=== PATIENT | male | born 1975 | race Hispanic/Latino ===

== ENCOUNTER 2020-09-04 22:02 | Emergency (ER) | payer OTHER, SELFPAY ==
[2020-09-05 02:02] LABS: Basophils # (Auto) 0.1 K/mm3 (0.0-0.1); Eosinophils # (Auto) 0.3 K/mm3 (0.0-0.4); Eosinophils % (Auto) 5.1 % (0.0-4.3); Hematocrit 41.3 % (35.5-45.6); Hemoglobin 14.3 gm/dl (11.8-15.2); Lymphocytes # (Auto) 2.2 K/mm3 (1.2-5.4); Lymphocytes % (Auto) 33.7 % (13.4-35.0); Mean Corpuscular HGB Conc 35 % (32-34); Mean Corpuscular Volume 90 fl (84-94); Monocytes # (Auto) 0.6 K/mm3 (0.0-0.8); Monocytes % (Auto) 9.1 % (0.0-7.3); Platelet Count 270 K/mm3 (140-440); Red Blood Count 4.59 M/mm3 (3.65-5.03); Red Cell Distribution Width 13.3 % (13.2-15.2)
[2020-09-05 02:13] LABS: Blood Urea Nitrogen 9 mg/dL (9-20); Calcium 8.7 mg/dL (8.4-10.2); Hemolysis Index 1
[2020-09-05 02:15] LABS: Alanine Aminotransferase 34 units/L (7-56); Albumin 3.9 g/dL (3.9-5)
[2020-09-05 02:17] LABS: BUN/Creatinine Ratio 13
[2020-09-05 02:18] LABS: Bilirubin,Direct < 0.2 mg/dL (0-0.2)
[2020-09-05] MEDS ORDERED: ZIPRASIDONE MESYLATE 20 MG VIAL IM ONE ×3 (02:18→21:50)
--- NOTE | 2020-09-05 02:21 | Emergency Department Report ---
ED Psych HPI - General Chief Complaint: Psych Stated Complaint: HALLUCINATION,PARANOID,TALKING TO SELF Time Seen by Provider: 09/05/20 01:28 Source: patient Mode of arrival: Ambulatory - History of Present Illness Initial Comments: Patient is 44 years old male with history of schizophrenia. Patient presented to the ER stating that he is feeling suicidal and homicidal. Patient stated that he is hearing voices asking him to kill himself. Patient stated that he does not have a specific plan. Patient denied visual hallucination. Patient admitted that he has been using methamphetamine in the last few days. Patient is very agitated and anxious. Patient given Geodon 20 mg IM for sedation. MD Complaint: suicidal ideation, feels depressed - Related Data Home Medications Medication Instructions Recorded Confirmed Last Taken Cogentin 20 mg PO DAILY 09/05/20 09/10/20 Unknown Haldol 5 mg BID 09/05/20 09/10/20 Unknown Levothyroxine [Synthroid] 25 mcg PO QAM 09/05/20 09/05/20 Unknown Previous Rx's Medication Instructions Recorded Last Taken Type Divalproex Dr [DepaKOTE DR] 250 mg PO TID #90 tablet 09/12/20 Unknown Rx OLANZapine [Zyprexa] 15 mg PO DAILY #30 tablet 09/12/20 Unknown Rx Venlafaxine [Effexor 37.5mg tab] 37.5 mg PO QDAY #30 tab 09/12/20 Unknown Rx Allergies Allergy/AdvReac Type Severity Reaction Status Date / Time No Known Allergies Allergy Unverified 09/05/20 01:46 ED Review of Systems ROS: Stated complaint: HALLUCINATION,PARANOID,TALKING TO SELF Other details as noted in HPI Comment: All other systems reviewed and negative Constitutional: denies: chills Respiratory: denies: cough, shortness of breath, SOB with exertion Cardiovascular: denies: chest pain, palpitations Gastrointestinal: denies: abdominal pain, nausea Musculoskeletal: denies: back pain Neurological: denies: headache, weakness Psychiatric: anxiety, auditory hallucinations, homicidal thoughts, suicidal thoughts. denies: depression, visual hallucinations ED Past Medical Hx - Past Medical History Previous Medical History?: No - Surgical History Past Surgical History?: No - Social History Smoking Status: Never Smoker Substance Use Type: None - Medications Home Medications: Home Medications Medication Instructions Recorded Confirmed Last Taken Type Cogentin 20 mg PO DAILY 09/05/20 09/10/20 Unknown History Haldol 5 mg BID 09/05/20 09/10/20 Unknown History Levothyroxine [Synthroid] 25 mcg PO QAM 09/05/20 09/05/[address] [DepaKOTE DR] 250 mg PO TID #90 tablet 09/12/20 Unknown Rx OLANZapine [Zyprexa] 15 mg PO DAILY #30 tablet 09/12/20 Unknown Rx Venlafaxine [Effexor 37.5mg tab] 37.5 mg PO QDAY #30 tab 09/12/20 Unknown Rx ED Physical Exam - General Limitations: No Limitations General appearance: alert, anxious, other (AGITATED) - Head Head exam: Present: atraumatic, normocephalic, normal inspection - Eye Eye exam: Present: normal appearance, PERRL - ENT ENT exam: Present: normal exam, normal orophraynx, mucous membranes moist - Neck Neck exam: Present: normal inspection, full ROM. Absent: tenderness, meningismus - Respiratory Respiratory exam: Present: normal lung sounds bilaterally - Cardiovascular Cardiovascular Exam: Present: regular rate, normal rhythm, normal heart sounds - GI/Abdominal GI/Abdominal exam: Present: soft, normal bowel sounds. Absent: distended, tenderness, guarding, rebound, rigid, organomegaly, mass, bruit, pulsatile mass, hernia - Extremities Exam Extremities exam: Present: normal inspection, full ROM, normal capillary refill. Absent: pedal edema, calf tenderness - Back Exam Back exam: Present: normal inspection. Absent: CVA tenderness (R), CVA tenderness (L) - Neurological Exam Neurological exam: Present: alert, oriented X3, CN II-XII intact - Psychiatric Psychiatric exam: Present: agitated, anxious, homicidal ideation, suicidal ideation - Skin Skin exam: Present: warm, intact, normal color ED Course Vital Signs 09/04/20 09/05/20 09/05/20 23:00 01:30 08:35 Temperature 98.1 F 98.2 F 97.5 F L Pulse Rate 82 94 H Respiratory 18 18 18 Rate Blood Pressure 138/78 Blood Pressure 135/74 139/94 [Right] O2 Sat by Pulse 98 100 Oximetry 09/05/20 09/05/20 09/06/20 16:10 19:37 02:56 Temperature 97.9 F 97.5 F L Pulse Rate 65 78 84 Respiratory 20 16 18 Rate Blood Pressure Blood Pressure 135/79 136/80 134/83 [Right] O2 Sat by Pulse 97 97 100 Oximetry 09/06/20 09/06/20 09/06/20 08:00 20:00 20:30 Temperature 97.6 F 98.8 F Pulse Rate 86 69 Respiratory 18 18 18 Rate Blood Pressure Blood Pressure 131/75 141/84 [Right] O2 Sat by Pulse 97 96 96 Oximetry 09/07/20 09/07/20 09/07/20 02:30 08:36 20:09 Temperature 98.4 F 98.7 F 98.4 F Pulse Rate 70 68 68 Respiratory 18 18 18 Rate Blood Pressure Blood Pressure 138/68 120/82 131/79 [Right] O2 Sat by Pulse 100 100 96 Oximetry 09/07/20 09/08/20 09/08/20 22:03 00:27 10:59 Temperature 98.1 F 98.3 F Pulse Rate 61 60 Respiratory 18 18 18 Rate Blood Pressure Blood Pressure 130/70 130/79 [Right] O2 Sat by Pulse 96 100 Oximetry 09/08/20 09/09/20 09/09/20 19:58 02:00 03:06 Temperature 98.3 F 98.4 F Pulse Rate 88 81 Respiratory 16 16 18 Rate Blood Pressure Blood Pressure 140/83 119/77 [Right] O2 Sat by Pulse 97 98 98 Oximetry 09/09/20 09/09/20 09/10/20 07:33 20:00 02:00 Temperature 98.6 F 98.8 F 97.4 F L Pulse Rate 80 78 76 Respiratory 16 20 16 Rate Blood Pressure Blood Pressure 147/80 108/70 104/72 [Right] O2 Sat by Pulse 97 98 100 Oximetry 09/10/20 09/10/20 09/10/20 08:00 19:54 23:20 Temperature 98.4 F 97.8 F Pulse Rate 84 75 Respiratory 18 18 18 Rate Blood Pressure Blood Pressure 128/80 118/75 [Right] O2 Sat by Pulse 100 97 98 Oximetry 09/11/20 09/11/20 09/11/20 02:06 07:53 20:48 Temperature 97.7 F 98.3 F 97.6 F Pulse Rate 74 81 72 Respiratory 16 20 18 Rate Blood Pressure Blood Pressure 107/80 140/98 107/76 [Right] O2 Sat by Pulse 98 100 96 Oximetry 09/11/20 09/12/20 09/12/20 22:15 02:14 08:43 Temperature 97.6 F 98.6 F Pulse Rate 70 67 Respiratory 16 18 20 Rate Blood Pressure Blood Pressure 101/69 138/93 [Right] O2 Sat by Pulse 98 98 100 Oximetry ED Medical Decision Making - Lab Data Result diagrams: 09/05/20 01:40 09/05/20 01:40 Critical care attestation.: If time is entered above; I have spent that time in minutes in the direct care of this critically ill patient, excluding procedure time. ED Disposition Clinical Impression: MDD (major depressive disorder), Polysubstance abuse Disposition: DC-01 TO HOME OR SELFCARE Is pt being admited?: No Condition: Stable Instructions: Substance Use Disorder, Major Depressive Disorder, Adult, Finding Treatment for Addiction Additional Instructions: Per psych provider, Anjana Mcbride, pt has been cleared by psych. Safety plan completed. Pt denies SI, HI, AVH. Pt has been referred for Outpatient resources. Resources to include psych providers, [place] Crisis line t/c number, therapy, substance abuse resources, and chcf/housing resources. Professional and Agency Contacts To help [facility](30/09) [place] Crisis Line: Suicide Prevention Line: Crisis Text Line: Text START to 787868 Emergency: 911 Outpatient COMMUNITY Behavioral Health Resources: [facility] [address] [place] [address] HILLARY: [facility] [address] [place], [place] [address] RICHEY: [facility] [address] [place] [address] KELSO: [facility] - [address] [place] [address] Friday thru Friday - 8am - 5pm PETROLIA: [facility] Address: [address], [place] [address] GEOFF: [facility] Address: [address] [place] [address] Friday thru Friday- 7am-2pm [facility] Address: [address] [place] [address] Friday thru Friday: 8:30AM-5PM OUTPATIENT MENTAL HEALTH RESOURCES [facility], [address] [place], [place] [id number] [facility] Clover Dillon MD: [address] [facility] [address] [place], [place] [id number] [facility]: [address] [facility] [address] [place], [place] [id number] [address] [place], [place] [id number] [phone] [facility]: [address] [facility] [address] [place], [place] [id number] [facility]: [address] [facility] Jason. B [facility] [id number] [facility]: [address] [place] [address] Odin Staley MD: [address] [facility] [id number] [facility]: [address] [place], [place] [id number] [phone] [place] CRISIS AND ACCESS LINE: * In case of an emergency, please contact the following numbers: [place] Crisis and Access Line: Number: Crisis Text Line: (Text START) Number: 561188 Suicide Prevention Line: Number: Emergency Number: 911 SUBSTANCE ABUSE PROGRAMS: [facility]: Location: [place], [place] [facility] Address: [address] [place] [address] [facility] Recovery: Address: [address] [place] [address] [facility]: Address: [address] [place] [address] [facility]: Address: [address] [place] [address] [facility] Address: [address] [place] [address]. Please contact above numbers to attempt placement into free based program. Medicaid Programs: [facility]: Address: [address] [place] [address] [facility]: Address: [address] [place] [id number] HOMELESS RESOURCES: [facility] NEED HELP? If you are in need of help or know someone who does, please contact us at [email or web address] or call , or come to our offices at [address] [place] [address], Friday-Friday beginning at 8AM. [facility] Males only Admission at 7am Fri to Fri Address: [address] [place] [address] Client Engagement Center [phone] Regular program admission occurs Friday through Friday at 7:00 am and operates on a first come, first serve basis. Because we cant anticipate program av ailability in advance and program spots are in high demand, we recommend arriving early. Space fills up fast! Next steps can include: Assignment to a [facility] program bed Connection to and placement in a partner program, or Referral to a partner agency [facility]: Marquita Marroquin, LUIS Address: [address] [place] [address] How do I join the Marquita Marroquin housing program? Our housing programs are offered based on availability. If you are looking to participate in our housing program, simply call [phone] to find out if we have available space. Since we do receive many calls, please allow up to 48 hours for one of our housing specialists to return your call. If we do not have vacancies, we suggest calling the [facility] hotline at 211 for additional housing options. [facility] [place] only Admission at 4:30pm daily Address: [address] [place] [address] [facility] Admission from 8am to 10am Daily No intake until 03/06/20 Address: [address] [facility], [place] [address] [facility] WOMEN and FAMILY Admission Address: [address] , [place] [address] Phone Number [phone] [facility] Providers: Porfirio Barraza [phone] Address: [address] [place] [address] Mr. Mann: [phone] Alverto Jiménez [phone] Ms. Corral: [phone] Ana Arias [phone] MsAg Murcia [phone] [facility] [phone] Ms. Lucero: [phone] [facility] [phone] [facility] Family Home: [facility] [phone] [facility] Prescriptions: Divalproex [Georgette CABELLO] 250 mg PO TID #90 tablet Venlafaxine [Effexor 37.5mg tab] 37.5 mg PO QDAY #30 tab OLANZapine [Zyprexa] 15 mg PO DAILY #30 tablet Referrals: PRIMARY CARE, [Primary Care Provider] - 3-5 Days
[2020-09-05 02:51] LABS: Bacteria,Urine 1+ /HPF (Negative); Bilirubin,Urine NEG (Negative); Blood,Urine NEG (Negative); Color,Urine Yellow (Yellow); Mucus,Urine 3+ /HPF
[2020-09-05 02:58] LABS: Amphetamine Screen,Urine PRESUMPTIVE POSITIVE; Benzodiazepines Screen,Urine PRESUMPTIVE POSITIVE; Cannabinoid Screen,Urine PRESUMPTIVE POSITIVE; Cocaine Screen,Urine PRESUMPTIVE NEGATIVE; Methadone Screen,Urine PRESUMPTIVE NEGATIVE; Opiate Screen,Urine PRESUMPTIVE NEGATIVE
--- NOTE | 2020-09-05 10:24 | Event Note ---
Date: 09/05/20 This patient presented overnight with a complaint of suicidal and homicidal ideations. For this reason the patient was placed on an ED hold. He has not yet been seen by the psychiatric team. I have reviewed his labs and they are mostly unremarkable, except for a UDS positive for amphetamines, benzodiazepines and marijuana. The patient required a dose of Geodon at about 2:30 AM for agitation. Since that time there have been no reportable events. The emergency department psychiatric nurse is going to try and see if there are any medicat ions for reconciliation. I see in the past the patient has been on Cogentin and levothyroxine. However, apparently patient says that he does not know the doses of any medications that he takes. His vital signs have been reassuring including being afebrile. We will continue to monitor this patient during his ED course. Vital Signs - 24 hr 09/04/20 09/05/20 09/05/20 23:00 01:30 08:35 Temperature 98.1 F 98.2 F 97.5 F L Pulse Rate 82 94 H Respiratory 18 18 18 Rate Blood Pressure 138/78 Blood Pressure 135/74 139/94 [Right] O2 Sat by Pulse 98 100 Oximetry
--- NOTE | 2020-09-05 11:37 | Consultation ---
History of Present Illness - Reason for Consult Consult date: 09/05/20 Reason for consult: Altered mental status - History of Present Psychiatric Illness Per Ed Note: Patient is 44 years old male with history of schizophrenia. Patient presented to the ER stating that he is feeling suicidal and homicidal. Patient stated that he is hearing voices asking him to kill himself. Patient stated that he does not have a specific plan. Patient denied visual hightower llucination. Patient admitted that he has been using methamphetamine in the last few days. Patient is very agitated and anxious. Patient given Geodon 20 mg IM for sedation. Patient was seen resting the the room, attempted to assess patient but he refused to talk. The nurse also tried to engage him however, it was still unsuccessful. PAST PSYCHIATRIC HISTORY:Unable to assess PAST MEDICAL HISTORY: n/a Family Psychiatric History: None reported or documented SOCIAL HISTORY-Unable to assess REVIEW OF SYSTEMS-Unable to assess MENTAL STATUS EXAMINATION-Unable to assess Current Visit: Yes Status: Acute RECOMMENDATIONS 1013 Start Trazodone 50mg po qhs Start Vistaril 25mg po BID Risks, benefits and alternatives of medications discussed with the patient, questions answered and consent obtained from patient. PSYCHOTHERAPY: Supportive psychotherapy provided MEDICAL: Per primary team DELIRIUM PRECAUTIONS: Please re-orient patient frequently, keep lights on during the day, and minimize benzodiazepines and opiates as these medications could worsen patient's confusion. 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 Please contact with any questions and/or concerns. Medications and Allergies Allergies Allergy/AdvReac Type Severity Reaction Status Date / Time No Known Allergies Allergy Unverified 09/05/20 01:46 Home Medications Medication Instructions Recorded Confirmed Last Taken Type Cogentin 09/05/20 Unknown History Haldol BID 09/05/20 Unknown History Levothyroxine [Synthroid] 25 mcg PO QAM 09/05/20 09/05/20 Unknown History Mental Status Exam - Vital signs Last Vital Signs Temp 97.5 F L 09/05/20 08:35 Pulse 94 H 09/05/20 08:35 Resp 18 09/05/20 08:35 BP 139/94 09/05/20 08:35 Pulse Ox 100 09/05/20 08:35 Results Result Diagrams: 09/05/20 01:40 09/05/20 01:40 Abnormal lab results 09/05/20 09/05/20 09/05/20 Range/Units 01:40 01:40 01:40 MCHC 35 H (32-34) % Polk % (Auto) 9.1 H (0.0-7.3) % Eos % (Auto) 5.1 H (0.0-4.3) % Sodium 135 L (137-145) mmol/L Potassium 3.5 L (3.6-5.0) mmol/L Chloride 97.4 L (98-107) mmol/L Creatinine 0.7 L (0.8-1.3) mg/dL Salicylates < 0.3 L (2.8-20.0) mg/dL Acetaminophen (10.0-30.0) ug/mL 09/05/20 Range/Units 01:40 MCHC (32-34) % Polk % (Auto) (0.0-7.3) % Eos % (Auto) (0.0-4.3) % Sodium (137-145) mmol/L Potassium (3.6-5.0) mmol/L Chloride (98-107) mmol/L Creatinine (0.8-1.3) mg/dL Salicylates (2.8-20.0) mg/dL Acetaminophen 5.0 L (10.0-30.0) ug/mL All other labs normal.
[2020-09-05] MEDS ORDERED: HALOPERIDOL LACTATE 5 MG/1 ML INJ IM PRN (21:50)
[2020-09-05] MEDS ORDERED: LORazepam 2 MG/ML VIAL IM PRN (21:50)
[2020-09-05] MEDS ORDERED: diphenhydrAMINE 25 MG CAP PO PRN (21:50)
[2020-09-05] MEDS ORDERED: ACETAMINOPHEN 325 MG TAB PO PRN (21:50)
--- NOTE | 2020-09-06 10:25 | Event Note ---
Date: 09/06/20 This patient initially presented with suicidal and homicidal ideations. Labs were mostly unremarkable except for the appearance of polysubstance abuse. He was seen and medically cleared by my colleague. He is on a 1013 and an ED hold. It appears that the patient did require a dose of Geodon around 9 PM last night for some agitation. I spoke to the emergency department psychiatric nurse, Natalia, who says that there have been no further events overnight, nor any this morning. No new labs today. His vital signs, listed below, are reassuring over the past 24 hours including being afebrile. As needed medications have previously been added. There are no current medications for reconciliation. The patient was seen resting comfortably in room #12, bed I. We will continue to monitor this patient during his ED course. Vital Signs - 24 hr 09/05/20 09/05/20 09/06/20 16:10 19:37 02:56 Temperature 97.9 F 97.5 F L Pulse Rate 65 78 84 Respiratory 20 16 18 Rate Blood Pressure 135/79 136/80 134/83 [Right] O2 Sat by Pulse 97 97 100 Oximetry 09/06/20 08:00 Temperature 97.6 F Pulse Rate 86 Respiratory 18 Rate Blood Pressure 131/75 [Right] O2 Sat by Pulse 97 Oximetry
--- NOTE | 2020-09-06 13:51 | Progress Note ---
Subjective - Reason for Consult Consult date: 09/06/20 Reason for consult: Suicidal ideation - Chief Complaint Chief complaint: This patient initially presented with suicidal and homicidal ideations. Labs were mostly unremarkable except for the appearance of polysubstance abuse. He was seen and medically cleared by my colleague. He is on a 1013 and an ED hold. It appears that the patient did require a dose of Geodon around 9 PM last night for some agitation. I spoke to the emergency department psychiatric nurse, Natalia, who says that there have been no further events overnight, nor any this morning. No new labs today. His vital signs, listed below, are reassuring over the past 24 hours including being afebrile. As needed medications have previously been added. There are no current medications for reconciliation. The patient was seen resting comfortably in room #12, bed I. We will continue to monitor this patient during his ED course. In my interview this morning with the patient, he reports he has been going through a lot lately "I live with friends." He states he had an argument with his girlfriend and states " I want to kill her, my mind is telling me to do it." When asked about suicidal ideation, he states " If I get a chance, I will. " PAST PSYCHIATRIC HISTORY: Diagnoses: Schizophrenia Suicide attempts or Self-harm behavior: Denied Prior psychiatric hospitalizations:unknown Substance Abuse history: Amphetamines Previous psychiatric medications tried:Zyprexa, Haldol, and Effexor Outpatient treatment:unknown PAST MEDICAL HISTORY: n/a Family Psychiatric History: None reported or documented SOCIAL HISTORY Marital Status: Living Arrangements: lives with Parents Employment Status: unemployed Access to guns/weapons: n/a Education: 8th grade History of Abuse: n/a Legal History: n/a REVIEW OF SYSTEMS Constitutional: Negative for weight loss ENT: Negative for stridor Respiratory: Negative for cough or hemoptysis All other systems reviewed and are negative MENTAL STATUS EXAMINATION General Appearance and Behavior: Age appropriate, good hygiene, wearing appropriate clothes, uncooperative polite with questioning. Cooperation: cooperative Psychomotor Behavior: Psychomotor agitation Mood: " alright" Affect and affective range: congruent Thought Process: Goal directed Thought Content: Within reality Speech: Normal volume, Regular rate and rhythm Intellectual Functioning:Average Suicidal Ideation: Yes Homicidal Ideation: Yes hallucination: Denied Impulse Control: Intact Insight and Judgment: Limited Memory: Intact Attention:Distractible Orientation: Alert and oriented Diagnoses: Major Depressive Disorder, Recurrent Severe- F33.3 RECOMMENDATIONS Continue 1013 Start-Effexor- 37.5mg po daily Start-Zyprexa 5mg po QHS Patient should be compliant with medications and not to use drugs and not to drink alcohol. PSYCHOTHERAPY: Supportive psychotherapy provided MEDICAL: Per primary team DELIRIUM PRECAUTIONS: Please re-orient patient frequently, keep lights on during the day, and minimize benzodiazepines and opiates as these medications could worsen patient's confusion. 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 Thank you for the consult. Please contact with any questions and/or concerns. Mental Status Exam - Vital signs Last Vital Signs Temp 97.6 F 09/06/20 08:00 Pulse 86 09/06/20 08:00 Resp 18 09/06/20 08:00 BP 131/75 09/06/20 08:00 Pulse Ox 97 09/06/20 08:00
[2020-09-06] MEDS: VENLAFAXINE 37.5 MG TAB PO SCH (16:30)
[2020-09-07] MEDS: VENLAFAXINE 37.5 MG TAB PO SCH (10:00)
--- NOTE | 2020-09-07 10:20 | Event Note ---
Date: 09/07/20 Patient is 44 years old male presented to the ER with homicidal ideation. No overnight issues. Vital signs stable. Labs reviewed and is unremarkable except for polysubstance abuse. Waiting for inpatient psychiatric admission.
--- NOTE | 2020-09-07 12:14 | Progress Note ---
Subjective - Reason for Consult Consult date: 09/07/20 Reason for consult: Suicidal ideation - Chief Complaint Chief complaint: Per ED Note: This patient initially presented with suicidal and homicidal ideations. Labs were mostly unremarkable except for the appearance of polysubstance abuse. He was seen and medically cleared by my colleague. He is on a 1013 and an ED hold. It appears that the patient did require a dose of Geodon around 9 PM last night for some agitation. I spoke to the emergency department psychiatric nurse, Natalia, who says that there have been no further events overnight, nor any this morning. No new labs today. His vital signs, listed below, are reassuring over the past 24 hours including being afebrile. As needed medications have previously been added. There are no current medications for reconciliation. The patient was seen resting comfortably in room #12, bed I. We will continue to monitor this patient during his ED course. The patient was seen resting the ED waiting room. Patient reports doing well. He reports sleep and appetite as good. The patient continues to endorse suicidal ideation, and intermittent auditory and visual hallucinations. REVIEW OF SYSTEMS Constitutional: Negative for weight loss ENT: Negative for stridor Respiratory: Negative for cough or hemoptysis All other systems reviewed and are negative MENTAL STATUS EXAMINATION General Appearance and Behavior: Age appropriate, good hygiene, wearing appropriate clothes, uncooperative polite with questioning. Cooperation: cooperative Psychomotor Behavior: Psychomotor agitation Mood: " good" Affect and affective range: congruent Thought Process: circumstantial Thought Content: Suicidal Speech: Normal volume, Regular rate and rhythm Intellectual Functioning:Average Suicidal Ideation: Yes Homicidal Ideation: Yes hallucination: Auditory/Visual Impulse Control: Intact Insight and Judgment: Limited Memory: Intact Attention:Distractible Orientation: Alert and oriented Diagnoses: Major Depressive Disorder, Recurrent Severe- F33.3 RECOMMENDATIONS Continue 1013 Continue-Effexor- 37.5mg po daily Continue-Zyprexa 5mg po QHS Patient should be compliant with medications and not to use drugs and not to drink alcohol. PSYCHOTHERAPY: Supportive psychotherapy provided MEDICAL: Per primary team DELIRIUM PRECAUTIONS: Please re-orient patient frequently, keep lights on during the day, and minimize benzodiazepines and opiates as these medications could worsen patient's confusion. 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 Thank you for the consult. Please contact with any questions and/or concerns. Mental Status Exam - Vital signs Last Vital Signs Temp 98.7 F 09/07/20 08:36 Pulse 68 09/07/20 08:36 Resp 18 09/07/20 08:36 BP 120/82 09/07/20 08:36 Pulse Ox 100 09/07/20 08:36
--- NOTE | 2020-09-08 11:09 | Progress Note ---
Subjective - Reason for Consult Consult date: 09/08/20 Reason for consult: homicidal - Chief Complaint Chief complaint: The patient was seen today, he makes poor eye contact. He endorses homicidal thoughts with voices telling him to kill somebody. He verbalized being depressed. He currently denies suicidal thoughts. REVIEW OF SYSTEMS Constitutional: Negative for weight loss ENT: Negative for stridor Respiratory: Negative for cough or hemoptysis All other systems reviewed and are negative MENTAL STATUS EXAMINATION General Appearance and Behavior: Age appropriate, wearing appropriate clothes, uncooperative polite with questioning, poor eye contact Cooperation: cooperative Psychomotor Behavior: Psychomotor agitation Mood: "depressed" Affect and affective range: congruent Thought Process: circumstantial Thought Content: hallucinations Speech: Normal volume, Regular rate and rhythm Suicidal Ideation: Denies Homicidal Ideation: Yes hallucination: Auditory Delusions: None elicited Impulse Control: Intact Insight and Judgment: Limited Memory: Intact Attention: Distractible Orientation: Alert and oriented Diagnoses: Major Depressive Disorder, Recurrent Severe- F33.3 Polysubstance Abuse Treatment Plan Continue 1013 Increase Zyprexa 7.5mg po daily Start Depakote DR 125mg po BID Patient should be compliant with medications and not to use drugs and not to drink alcohol. PSYCHOTHERAPY: Supportive psychotherapy provided MEDICAL: Per primary team DELIRIUM PRECAUTIONS: Please re-orient patient frequently, keep lights on during the day, and minimize benzodiazepines and opiates as these medications could worsen patient's confusion. 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 Thank you for the consult. Please contact with any questions and/or concerns. Mental Status Exam - Vital signs Last Vital Signs Temp 98.3 F 09/08/20 10:59 Pulse 60 09/08/20 10:59 Resp 18 09/08/20 10:59 BP 130/79 09/08/20 10:59 Pulse Ox 100 09/08/20 10:59
[2020-09-08] MEDS: DIVALPROEX DR 125 MG TAB PO SCH (12:39)
[2020-09-08] MEDS: VENLAFAXINE 37.5 MG TAB PO SCH (12:39)
[2020-09-09] MEDS: DIVALPROEX DR 125 MG TAB PO SCH ×2 (01:10→07:56)
[2020-09-09] MEDS ORDERED: VENLAFAXINE 75 MG TAB ONE (07:50)
[2020-09-09] MEDS: VENLAFAXINE 37.5 MG TAB PO SCH (07:57)
--- NOTE | 2020-09-09 09:15 | Progress Note ---
Subjective - Reason for Consult Consult date: 09/09/20 Reason for consult: homicidal - Chief Complaint Chief complaint: The patient was seen today, he makes poor eye contact. He endorses homicidal and suicidal thoughts today. He says "definitely homicidal." He says voices are telling him to kill people. REVIEW OF SYSTEMS Constitutional: Negative for weight loss ENT: Negative for stridor Respiratory: Negative for cough or hemoptysis All other systems reviewed and are negative MENTAL STATUS EXAMINATION General Appearance and Behavior: Age appropriate, wearing appropriate clothes, uncooperative polite with questioning, poor eye contact Cooperation: cooperative Psychomotor Behavior: Psychomotor agitation Mood: "depressed" Affect and affective range: congruent Thought Process: circumstantial Thought Content: hallucinations Speech: Normal volume, Regular rate and rhythm Suicidal Ideation: Yes Homicidal Ideation: Yes hallucination: Auditory Delusions: None elicited Impulse Control: Intact Insight and Judgment: Limited Memory: Intact Attention: Distractible Orientation: Alert and oriented Diagnoses: Major Depressive Disorder, Recurrent Severe- F33.3 Polysubstance Abuse Treatment Plan Continue 1013 Increase Zyprexa 10mg po daily Increase Depakote DR 250mg po BID Patient should be compliant with medications and not to use drugs and not to drink alcohol. PSYCHOTHERAPY: Supportive psychotherapy provided MEDICAL: Per primary team DELIRIUM PRECAUTIONS: Please re-orient patient frequently, keep lights on during the day, and minimize benzodiazepines and opiates as these medications could worsen patient's confusion. MEDICAL AFFAIRS LEADER: Per medical team DISPOSITION: Recommend acute inpatient psychiatric hospitalization at this time FOLLOW-UP: Will sign follow. Thank you for the consult. Please contact with any questions and/or concerns. Mental Status Exam - Vital signs Last Vital Signs Temp 98.6 F 09/09/20 07:33 Pulse 80 09/09/20 07:33 Resp 16 09/09/20 07:33 BP 147/80 09/09/20 07:33 Pulse Ox 97 09/09/20 07:33
[2020-09-09] MEDS ORDERED: LEVOTHYROXINE 75 MCG TAB PO SCH (10:00)
--- NOTE | 2020-09-09 10:22 | Event Note ---
Date: 09/09/20 44-year-old male who presented with HI/SI. He was medically cleared and seen by psychiatry who recommended further inpatient treatment. Vital signs are stable. No acute events overnight. Restarted home levothyroxine today. Currently awaiting placement at an inpatient psychiatric facility.
[2020-09-09] MEDS: DIVALPROEX DR 250 MG TAB PO SCH (23:01)
[2020-09-10] MEDS: LEVOTHYROXINE 25 MCG TAB PO SCH ×2 (08:06→08:07)
[2020-09-10] MEDS: DIVALPROEX DR 250 MG TAB PO SCH ×4 (08:07→22:51)
[2020-09-10] MEDS: VENLAFAXINE 37.5 MG TAB PO SCH ×2 (08:07→11:16)
--- NOTE | 2020-09-10 10:31 | Progress Note ---
Subjective - Reason for Consult Consult date: 09/10/20 Reason for consult: homicidal - Chief Complaint Chief complaint: The patient was seen today, he makes poor eye contact. He says he's still having homicidal thoughts and that he's going to kill his ex old lady if he leaves today because of the way she treats him. REVIEW OF SYSTEMS Constitutional: Negative for weight loss ENT: Negative for stridor Respiratory: Negative for cough or hemoptysis All other systems reviewed and are negative MENTAL STATUS EXAMINATION General Appearance and Behavior: Age appropriate, wearing appropriate clothes, uncooperative polite with questioning, poor eye contact Cooperation: cooperative Psychomotor Behavior: Psychomotor agitation Mood: "depressed" Affect and affective range: congruent Thought Process: circumstantial Thought Content: hallucinations Speech: Normal volume, Regular rate and rhythm Suicidal Ideation: Yes Homicidal Ideation: Yes hallucination: Auditory Delusions: None elicited Impulse Control: Intact Insight and Judgment: Limited Memory: Intact Attention: Distractible Orientation: Alert and oriented Diagnoses: Major Depressive Disorder, Recurrent Severe- F33.3 Polysubstance Abuse Treatment Plan Continue 1013 Continue Zyprexa 10mg po daily Increase Depakote DR 250mg po TID Patient should be compliant with medications and not to use drugs and not to drink alcohol. PSYCHOTHERAPY: Supportive psychotherapy provided MEDICAL: Per primary team DELIRIUM PRECAUTIONS: Please re-orient patient frequently, keep lights on during the day, and minimize benzodiazepines and opiates as these medications could worsen patient's confusion. PHYSIOLOGICAL CHEMIST: Per medical team DISPOSITION: Recommend acute inpatient psychiatric hospitalization at this time FOLLOW-UP: Will sign follow. Thank you for the consult. Please contact with any questions and/or concerns. Mental Status Exam - Vital signs Last Vital Signs Temp 98.4 F 09/10/20 08:00 Pulse 84 09/10/20 08:00 Resp 18 09/10/20 08:00 BP 128/80 09/10/20 08:00 Pulse Ox 100 09/10/20 08:00
--- NOTE | 2020-09-10 10:34 | Event Note ---
Date: 09/10/20 44-year-old male who presented with HI and SI. Medically cleared and seen by psychiatry who recommends further inpatient psychiatric placement. Vital signs are stable. Patient did require 1 dose of Haldol due to increased agitation/aggression, but otherwise no acute events overnight. Vital signs are stable. Currently awaiting inpatient psychiatric placement
[2020-09-11] MEDS: LEVOTHYROXINE 25 MCG TAB PO SCH (06:55)
[2020-09-11] MEDS: DIVALPROEX DR 250 MG TAB PO SCH ×3 (08:00→20:10)
--- NOTE | 2020-09-11 08:34 | Progress Note ---
Subjective - Reason for Consult Consult date: 09/11/20 Reason for consult: SI/HI, hallucinations - Chief Complaint Chief complaint: The patient was seen today, he appears to be better and makes better eye contact. The patient did state that he feels a lot better, but says he still feels a little homicidal. He says "the urge is not near as bad." He still endorses the voices telling him to hurt his ex girlfriend. REVIEW OF SYSTEMS Constitutional: Negative for weight loss ENT: Negative for stridor Respiratory: Negative for cough or hemoptysis All other systems reviewed and are negative MENTAL STATUS EXAMINATION General Appearance and Behavior: Age appropriate, wearing appropriate clothes, uncooperative polite with questioning, poor eye contact Cooperation: cooperative Psychomotor Behavior: Psychomotor agitation Mood: "a lot better" Affect and affective range: congruent Thought Process: circumstantial Thought Content: hallucinations Speech: Normal volume, Regular rate and rhythm Suicidal Ideation: Yes Homicidal Ideation: Yes hallucination: Auditory Delusions: None elicited Impulse Control: Intact Insight and Judgment: Limited Memory: Intact Attention: Distractible Orientation: Alert and oriented Diagnoses: Major Depressive Disorder, Recurrent Severe- F33.3 Polysubstance Abuse Treatment Plan Continue 1013 Increased Zyprexa 15mg po daily Continue Depakote DR 250mg po TID Patient should be compliant with medications and not to use drugs and not to drink alcohol. PSYCHOTHERAPY: Supportive psychotherapy provided MEDICAL: Per primary team DELIRIUM PRECAUTIONS: Please re-orient patient frequently, keep lights on during the day, and minimize benzodiazepines and opiates as these medications could worsen patient's confusion. 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 Thank you for the consult. Please contact with any questions and/or concerns. Mental Status Exam - Vital signs Last Vital Signs Temp 98.3 F 09/11/20 07:53 Pulse 81 09/11/20 07:53 Resp 20 09/11/20 07:53 BP 140/98 09/11/20 07:53 Pulse Ox 100 09/11/20 07:53
[2020-09-11] MEDS: VENLAFAXINE 37.5 MG TAB PO SCH (10:31)
--- NOTE | 2020-09-11 10:48 | Event Note ---
Date: 09/11/20 This patient has been in the emergency department for 156 hours. He was previously seen by my colleague and medically cleared. He was placed on a 1013 and an ED hold secondary to acute psychosis, suicidal and homicidal ideations, and appears to have some history of polysubstance abuse. The patient was seen by the psychiatric team today who feels that he still requires inpatient stabilization. Although he has showed some improvement, the patient still endorses homicidal ideations and specifically targets his ex girlfriend. I spoke to the emergency department psychiatric nurse, Kylah, who says that there were no events signed out to her from overnight, nor any this morning thus far. Vital signs over the past 24 hours, listed below, have been reassuring including being afebrile. No new medications for reconciliation. We will continue to monitor the patient during his ED course. Vital Signs - 24 hr 09/10/20 09/10/20 09/11/20 19:54 23:20 02:06 Temperature 97.8 F 97.7 F Pulse Rate 75 74 Respiratory 18 18 16 Rate Blood Pressure 118/75 107/80 [Right] O2 Sat by Pulse 97 98 98 Oximetry 09/11/20 07:53 Temperature 98.3 F Pulse Rate 81 Respiratory 20 Rate Blood Pressure 140/98 [Right] O2 Sat by Pulse 100 Oximetry
[2020-09-12] MEDS: LEVOTHYROXINE 25 MCG TAB PO SCH (07:32)
[2020-09-12] MEDS: DIVALPROEX DR 250 MG TAB PO SCH ×3 (07:32→20:23)
[2020-09-12 08:47] VITALS: BP 138/93
[2020-09-12] MEDS: VENLAFAXINE 37.5 MG TAB PO SCH (09:58)
--- NOTE | 2020-09-12 10:03 | Emergency Department Report ---
Blank Doc - Documentation Documentation: Patient has been in the emergency department for greater than 170 hours. Mental health disposition is pending. There were no acute events overnight.
--- NOTE | 2020-09-12 10:24 | Progress Note ---
Subjective - Reason for Consult Consult date: 09/12/20 Reason for consult: HI - Chief Complaint Chief complaint: The patient was seen today, he is optimistic and in a much better mood. He smiles, makes good eye contact and thanks me for helping him. He says the medication has helped him a lot. He says "I actually feel good." The patient says he's going nowhere near his ex girlfriend. He says she is about 80 miles away. The patient says "I will be in [place] away from her with my brother and sister." He denies SI/HI in anyway. He says "nobody is worth me going back to [facility]. I just got out 3 months ago and I'm not letting nobody make me go back." He also denies hallucinations of any kind. I spoke with the patient's sister, Kylah who confirms what the patient says. She says she will pick him up and he will go home with her, and live either with her or a family friend. REVIEW OF SYSTEMS Constitutional: Negative for weight loss ENT: Negative for stridor Respiratory: Negative for cough or hemoptysis All other systems reviewed and are negative MENTAL STATUS EXAMINATION General Appearance and Behavior: Age appropriate, wearing appropriate clothes, cooperative polite with questioning, good eye contact, calm and cooperative Cooperation: cooperative Psychomotor Behavior: Psychomotor normal Mood: "good" Affect and affective range: congruent with stated mood, Euthymic Thought Process: goal directed Thought Content: optimism Speech: Normal volume, Regular rate and rhythm Suicidal Ideation: Denies Homicidal Ideation: Denies hallucination: Denies Delusions: None elicited Impulse Control: Intact Insight and Judgment: Limited Memory: Intact Attention: attentive, engaging Orientation: Alert and oriented Diagnoses: Major Depressive Disorder, Recurrent Severe- F33.3 Polysubstance Abuse Treatment Plan d/c 1013 Zyprexa 15mg po daily Depakote DR 250mg po TID Effexor 37.5mg po daily Patient should be compliant with medications and not to use drugs and not to drink alcohol. PSYCHOTHERAPY: Supportive psychotherapy provided MEDICAL: Per primary team DELIRIUM PRECAUTIONS: Please re-orient patient frequently, keep lights on during the day, and minimize benzodiazepines and opiates as these medications could worsen patient's confusion. 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 The patient understands that if SI/HI or any fear or threat to himself or anyone else he is to seek immediate assistance. He is to abstain from all illicit drug use. The correctional officer sergeant is to give him resources for CBT, med management and assistance, and drug rehab He is to follow up in 7 to 14 days with outpatient psych Will sign off Thank you for the consult. Please contact with any questions and/or concerns. Case staffed with Dr. Dominguez Mental Status Exam - Vital signs Last Vital Signs Temp 98.6 F 09/12/20 08:43 Pulse 67 09/12/20 08:43 Resp 20 09/12/20 08:43 BP 138/93 09/12/20 08:43 Pulse Ox 100 09/12/20 08:43
[2020-09-12] MEDS ORDERED: COGENTIN PO SCH (10:30)
[2020-09-12] MEDS ORDERED: HALOPERIDOL 5 MG TAB PO SCH (11:30)
[2020-09-12] MEDS ORDERED: HALDOL 5 MG PO SCH (11:30)
[2020-09-12] MEDS ORDERED: BENZTROPINE 2 MG TAB PO SCH (12:00)
== END 2020-09-12 21:11 | disposition home or self-care (01) ==
LOC: ED 22:02 → EEVIPCON 22:02 → ED 09-12 21:11
DX: F32.9 Major depressive disorder, single episode, unspecified (principal); Z20.822 Contact with and (suspected) exposure to COVID-19; F19.10 Other psychoactive substance abuse, uncomplicated; Z79.899 Other long term (current) drug therapy
CPT/HCPCS: 36415; 80048; 80076; 80307; 81001; 84443; 85025; 96372; 99284; J1630; J2060; J3246; J3486; U0003; 80320; G0480